=== PATIENT | female | born 1945 | race Two or more races ===

== ENCOUNTER → 2022-04-29 | Outpatient (CLI) | payer MEDICAID | END | disposition home or self-care (01) | LOC: Rad HDHVI 08:01 | PROVIDERS: ATTEND Internal Medicine Cardiovascular Disease | DX: I08.1 Rheumatic disorders of both mitral and tricuspid valves (principal); R07.89 Other chest pain | CPT/HCPCS: 93306 ==

== ENCOUNTER → 2022-05-19 | Outpatient (CLI) | payer MEDICAID | END | disposition home or self-care (01) | LOC: Rad HDHVI 10:50 | PROVIDERS: ATTEND Internal Medicine Cardiovascular Disease | DX: I70.203 Unspecified atherosclerosis of native arteries of extremities, bilateral legs (principal) | CPT/HCPCS: 93925 ==

== ENCOUNTER → 2023-08-24 | Outpatient (CLI) | payer MEDICAID ==
[~2023-08-24] MED LIST: CARB-112 PO; DONE1TAB88 PO; METF-371 PO; ZOLP10TA6 PO
== END | disposition home or self-care (01) ==
LOC: Rad HDHVI 08:03
PROVIDERS: ATTEND Internal Medicine Cardiovascular Disease
DX: R07.89 Other chest pain (principal)
CPT/HCPCS: 93880

== ENCOUNTER → 2023-08-26 | Outpatient (CLI) | payer MEDICAID ==
[~2023-08-26] VITALS: Ht 154.9 cm; Wt 49.9 kg
[~2023-08-26] MED LIST changes: +ADENOSINE 42 MG in GIVE UN-DILUTED 0 ML IV ONE; +ADENOSINE 90 MG/30 ML INJ IV ONE
== END | disposition home or self-care (01) ==
LOC: Rad HDHVI 08:13
PROVIDERS: ATTEND Internal Medicine Cardiovascular Disease
DX: I11.0 Hypertensive heart disease with heart failure (principal); I50.43 Acute on chronic combined systolic (congestive) and diastolic (congestive) heart failure; E11.21 Type 2 diabetes mellitus with diabetic nephropathy; E78.00 Pure hypercholesterolemia, unspecified; I73.9 Peripheral vascular disease, unspecified; I42.0 Dilated cardiomyopathy
CPT/HCPCS: 78452; 93005; 96374; 96375; A9500; J0153

== ENCOUNTER → 2023-08-27 | Outpatient (CLI) | payer MEDICAID ==
[~2023-08-27] MED LIST changes: -ADENOSINE 42 MG in GIVE UN-DILUTED 0 ML IV ONE; -ADENOSINE 90 MG/30 ML INJ IV ONE
== END | disposition home or self-care (01) ==
LOC: Rad HDHVI 13:01
PROVIDERS: ATTEND Internal Medicine Cardiovascular Disease
DX: I08.1 Rheumatic disorders of both mitral and tricuspid valves (principal); R07.89 Other chest pain
CPT/HCPCS: 93306

== ENCOUNTER 2024-05-28 18:01 | Emergency (ER) | payer MEDICAID ==
[~2024-05-28] VITALS: Ht 160 cm; Wt 5.0 kg
--- NOTE | 2024-05-28 18:18 | ED.PDOC ---
History of Present Illness HPI Comments 78 year old female came to ER due to weakness. Per EMS, patient picked up at home, and has history of dementia and diabetes. Was noted by family members that for the past 2 weeks she has been having episodes of nausea, vomiting and loss of appetite. Noted generalized weakness. Blood sugar on scene was 180. Chief Complaint: Weakness Time Seen by MD: 18:17 Reviewed Notes: Exchange Floor Manager Notes Allergies: Coded Allergies: No Known Drug Allergy (Verified Allergy, Unknown, 09/03/22) Home Meds Reported Medications Zolpidem Tartrate (Zolpidem Tartrate) 10 Mg Tab, 10 MG PO DAILY, TAB 09/03/22 Donepezil Hydrochloride (DONEPEZIL HCL) 10 Mg Tab, 10 MG PO HS for dementia, MG 09/03/22 Levodopa W/Carbidopa (Carbidopa/Levodopa) 1 Tab Tab, 0.5 TAB PO BID for dementia, TAB 09/03/22 Levodopa W/Carbidopa (Carbidopa/Levodopa) 1 Tab Tab, 0.5 TAB PO ac breakfast for dementia, TAB 09/03/22 Metformin Hydrochloride (Metformin Hcl) 850 Mg Tab, 850 MG PO BID for DIABETES for 30 Days, MG 09/03/22 Information Source: Patient, Emergency Med Personnel Mode of Arrival: EMS Severity: Moderate Timing: Days Duration: Since onset Prehospital treatment: Accucheck Review of Systems Review of Systems: REVIEW OF SYSTEMS: No fever, no chills, or fatigue HEENT: No sore throat, no earache, no congestion, no neck pain. Cardiac: No chest pain. No palpitations. Lungs: No shortness of breath, no cough. GI: + nausea, + vomiting, no diarrhea, no constipation, + abdominal pain : No dysuria, frequency, or urgency. No hematuria. Musculoskeletal: No joint pain , no joint swelling, no extremity edema. Skin: No rash, no itching. Neuro: No headache, + dizziness, + weakness Vital Signs Vital Signs Date Time Temp Pulse Resp B/P (MAP) Pulse Ox O2 Delivery O2 Flow Rate FiO2 05/28/24 23:22 97.3 64 14 142/77 (98) 99 97.3 05/28/24 19:59 Room Air* 0 21 Physical Exam Physical Exam General: Awake, alert and oriented. No acute distress. Skin: Skin in warm, dry , poor skin turgor. Appropriate color for ethnicity. HEENT: The head is normocephalic and atraumatic. Conjunctivae are clear without exudates or hemorrhage. Sclera is non-icteric. EOM are intact. No signs of nystagmus. Eyelids are normal in appearance without swelling or lesions. Oral mucosa is pink and moist Neck: The neck is supple with normal range of motion. No JVD. Cardiac: Heart rate and rhythm are normal. No murmurs, gallops, or rubs are auscultated. Respiratory: No signs of respiratory distress. Lung sounds are clear in all lobes bilaterally without rales, rhonchi, or wheezes. Abdominal: Abdomen is soft, generally-tender without distention. Bowel sounds are present and normoactive in all four quadrants. Extremities: Upper and lower extremities are atraumatic in appearance without deformity or edema. Neurological: The patient is awake, alert and oriented to person, Speech is clear. There is no facial asymmetry. Psychiatric: Appropriate mood and affect. Good judgement and insight. Past Medical History PAST MEDICAL HISTORY: Alzheimer, Dementia Surgical History: Pt Confused JOB ANALYST History: Pt Confused Family History Family History: Pt Confused Social History Smoker: Pt Confused Alcohol: Pt Confused Drugs: Pt Confused Lives In: Home Was a procedure done? Was a procedure done?: No EKG EKG : Pulse Rate (adult): 97 Cardiac Rhythm: NSR Comments No STEMI Differential Dx Considerations may include: anemia, electrolyte imbalance, dehydration, sepsis, dementia, UTI. gastroenteritis Urinary tract infection, dehydration, sepsis, thyroid disorder, anemia, acute coronary syndrome, electrolyte imbalance, congestive heart failure, X-Ray, Labs, Meds, VS Vital Signs Date Time Temp Pulse Resp B/P (MAP) Pulse Ox O2 Delivery O2 Flow Rate FiO2 05/28/24 23:22 97.3 64 14 142/77 (98) 99 97.3 05/28/24 20:14 97 05/28/24 20:05 98.0 66 18 153/63 (93) 97 98.0 05/28/24 19:59 Room Air* 0 21 05/28/24 19:35 97 05/28/24 18:31 68 05/28/24 18:27 96.5 77 20 149/92 (111) 100 96.5 Lab Test 05/28/24 19:55 05/28/24 18:38 Range/Units Influenza Type A Antigen Nn Negative Influenza Type B Antigen Negative Negative SARS-CoV-2 Antigen (Rapid) Negative NEGATIVE White Blood Count 4.9 4.4-10.8 10^3/uL Red Blood Count 4.44 4.0-5.20 10^6/uL Hemoglobin 12.6 12.2-16.2 g/dL Hematocrit 39.4 36.0-46.0 % Mean Corpuscular Volume 88.8 80.0-100.0 fL Mean Corpuscular Hemoglobin 28.3 28.0-32.0 pg Mean Corpuscular Hemoglobin Concent 31.9 L 32.0-36.0 g/dL Red Cell Distribution Width 14.4 H 11.8-14.3 % Platelet Count 197 140-450 10^3/uL Mean Platelet Volume 7.4 6.9-10.8 fL Neutrophils (%) (Auto) 77.8 37.0-80.0 % Lymphocytes (%) (Auto) 16.2 10.0-50.0 % Monocytes (%) (Auto) 5.6 0.0-12.0 % Eosinophils (%) (Auto) 0.2 0.0-7.0 % Basophils (%) (Auto) 0.2 0.0-2.0 % Neutrophils # (Auto) 3.8 1.6-8.6 10 ^3/uL Lymphocytes # (Auto) 0.8 0.4-5.4 10 ^3/uL Monocytes # (Auto) 0.3 0-1.3 10 ^3/uL Eosinophils # (Auto) 0 0-0.8 10 ^3/uL Basophils # (Auto) 0 0-0.2 10 ^3/uL Nucleated Red Blood Cells 0.1 % Sodium Level 141 136-145 mmol/L Potassium Level 3.6 3.5-5.1 mmol/L Chloride Level 106 98-107 mmol/L Carbon Dioxide Level 28 20-31 mmol/L Anion Gap 7 5-15 Blood Urea Nitrogen 28 H 9-23 mg/dL Creatinine 0.74 0.550-1.02 mg/dL Glomerular Filtration Rate Calc 82 >90 mL/min BUN/Creatinine Ratio 37.8 H 10.0-20.0 Serum Glucose 169 H 74-106 mg/dL Lactic Acid Level 0.9 0.4-2.0 mmol/L Calcium Level 9.4 8.7-10.4 mg/dL Magnesium Level 2.0 1.6-2.6 mg/dL Total Bilirubin 0.7 0.2-1.0 mg/dL Aspartate Amino Transferase (AST) < 8 L 13-40 U/L Alanine Aminotransferase (ALT) 21 7-40 U/L Alkaline Phosphatase 110 46-116 U/L Troponin I High Sensitivity 23 </=34 ng/L B-Type Natriuretic Peptide 215.44 0-100 pg/mL Total Protein 7.3 5.7-8.2 g/dL Albumin 4.5 3.2-4.8 g/dL Lipase 32 12-53 U/L Thyroid Stimulating Hormone (TSH) 1.65 0.55-4.78 uIU/mL Plasma/Serum Blood Alcohol < 3.0 <10 mg/dL Microbiology Date/Time Source Procedure Growth Status 05/28/24 18:38 Blood Blood Culture - Preliminary NO GROWTH AFTER 24 HOURS OF INCUBATION. Resulted 05/28/24 18:20 Blood Blood Culture - Preliminary NO GROWTH AFTER 24 HOURS OF INCUBATION. Resulted CHEST RADIOGRAPH Indication: AMS Technique: Single frontal view of the chest was obtained COMPARISON: Chest x-ray 09/03/2022 FINDINGS: Lines and Tubes: None Lungs: Clear Pleura: No effusion. No pneumothorax. Cardiomediastinal contours: Mild cardiomegaly IMPRESSION: No acute disease. Time of 1ST Reevaluation: 18:14 Reevaluation 1ST: Unchanged Patient Education/Counseling: Other (History of dementia) Family Education/Counseling: Other (Discussed with daughter pending test results and plan of care) Departure 1 Departure Time of Disposition: 00:00 Impression: Primary Impression: Generalized weakness Additional Impressions: Dementia Eloped from emergency department Disposition: 07 LEFT AWOL/ELOPED Condition: Stable Comments 78-year-old female who presents to the emergency department with generalized weakness, abdominal tenderness, nausea and vomiting. Patient was evaluated on arrival to the emergency department in the ambulance stretcher. Labs and i anh ordered. Discussed plan of care and pending test results with daughter. She agreed to stay and complete workup. Daughter later eloped with the patient in the emergency department. I was not informed of the patient's departure from the emergency department. Attempted to reach Ida Kauffman on phone number listed in chart however this message stating phone numbers not in service [phone] Critical Care Note Critical Care Time?: No Stability Stability form required: No Heart Score Heart Score: Heart Score Response (Comments) Value History N/A 0 EKG N/A 0 Age N/A 0 Risk Factors N/A 0 Troponin N/A 0 Total 0 I personally scribed for RAVEN NG MD ([email or web address]) on 05/28/24 at 18:18. Electronically submitted by Lizandro Leone ([email or web address]). I personally scribed for RAVEN NG MD ([email or web address]) on 05/28/24 at 18:22. Electronically submitted by Lizandro Leone ([email or web address]). I personally scribed for RAVEN NG MD ([email or web address]) on 05/28/24 at 18:23. Electronically submitted by Lizandro Leone ([email or web address]). I personally scribed for RAVEN NG MD ([email or web address]) on 05/28/24 at 20:11. Electronically submitted by Lizandro Leone ([email or web address]). I personally scribed for RAVEN NG MD ([email or web address]) on 05/28/24 at 20:14. Electronically submitted by Lizandro Leone ([email or web address]). I personally scribed for RAVEN NG MD ([email or web address]) on 05/28/24 at 23:13. Electronically submitted by Lizandro Leone ([email or web address]). RAVEN NG MD May 28, 2024 18:18
[2024-05-28] MEDS: SODIUM CHLORIDE 0.9% 1,000 ML IV ONE (18:30)
[2024-05-28 18:57] LABS: Basophils # (auto) 0 10 ^3/uL (0-0.2); Basophils % (auto) 0.2 % (0.0-2.0); Eosinophils # (auto) 0 10 ^3/uL (0-0.8); Eosinophils % (auto) 0.2 % (0.0-7.0); Hematocrit 39.4 % (36.0-46.0); Hemoglobin 12.6 g/dL (12.2-16.2); Lymphocytes # (auto) 0.8 10 ^3/uL (0.4-5.4); Lymphocytes % (auto) 16.2 % (10.0-50.0); Mean Corpuscular Hemoglobin 28.3 pg (28.0-32.0); Mean Corpuscular Hgb Conc. 31.9 g/dL (32.0-36.0); Mean Corpuscular Volume 88.8 fL (80.0-100.0); Monocytes # (auto) 0.3 10 ^3/uL (0-1.3); Monocytes % (auto) 5.6 % (0.0-12.0); Neutrophils # (auto) 3.8 10 ^3/uL (1.6-8.6); Neutrophils % (auto) 77.8 % (37.0-80.0); Nucleated Red Blood Cells % 0.1 %; Platelet Count (auto) 197 10^3/uL (140-450); Red Blood Cells 4.44 10^6/uL (4.0-5.20); Red Cell Distribution Width 14.4 % (11.8-14.3); White Blood Cell 4.9 10^3/uL (4.4-10.8)
[2024-05-28 19:11] LABS: Alanine Aminotransferase 21 U/L (7-40); Alkaline Phosphatase 110 U/L (46-116); Anion Gap 7 (5-15); BUN/Creatinine Ratio 37.8 (10.0-20.0); Calcium 9.4 mg/dL (8.7-10.4); Carbon Dioxide 28 mmol/L (20-31); Chloride 106 mmol/L (98-107); Potassium 3.6 mmol/L (3.5-5.1); Sodium 141 mmol/L (136-145); Total Protein 7.3 g/dL (5.7-8.2)
[2024-05-28 19:12] LABS: Albumin 4.5 g/dL (3.2-4.8); Bilirubin, Total 0.7 mg/dL (0.2-1.0)
[2024-05-28 19:14] LABS: Aspartate Aminotransferase < 8 U/L (13-40); Blood Alcohol < 3.0 mg/dL (<10); Blood Urea Nitrogen 28 mg/dL (9-23); Glucose 169 mg/dL (74-106)
--- NOTE | 2024-05-28 19:16 | DVH ---
CHEST RADIOGRAPH Indication: AMS Technique: Single frontal view of the chest was obtained COMPARISON: Chest x-ray 09/03/2022 FINDINGS: Lines and Tubes: None Lungs: Clear Pleura: No effusion. No pneumothorax. Cardiomediastinal contours: Mild cardiomegaly IMPRESSION: No acute disease.
[2024-05-28 19:43] LABS: Lipase 32 U/L (12-53)
[2024-05-28 20:30] LABS: COVID19 ANTIGEN SOFIA FIA NEGATIVE (NEGATIVE); Rapid Influenza A NN (Negative); Rapid Influenza B Negative (Negative)
[2024-05-28] MEDS: IOHEXOL 300 MG/ML 100ML BOTTLE IJ ONE (22:37)
[2024-05-28] MEDS: ONDANSETRON HCL 4 MG/2 ML VIAL IV ONE (22:41)
[2024-05-28 23:22] VITALS: BP 142/77; PULSE 64; RESP 14; TEMP 97.3; O2SAT 99
--- NOTE | 2024-05-28 23:55 | DVH ---
CLINICAL HISTORY: Abdominal pain, generalized weakness TECHNIQUE: CT of the abdomen and pelvis was performed with intravenous contrast. 100 mL Omnipaque 300 injected This exam was performed according to our departmental dose optimization program. Up-to-date CT equipment and radiation dose reduction techniques are utilized as appropriate. CTDIVol: 5.96 mGy DLP: 335.1 mGy-cm WID: COMPARISON: None FINDINGS: Lower Thorax: Linear bibasilar scarring or atelectasis. Mild cardiomegaly with small pericardial effu sheri. Partially imaged moderate 3-vessel calcified coronary artery disease. Mild mixed atheroscleroti c plaque in the descending thoracic aorta. Liver and Biliary system: Hepatomegaly measuring 19 cm craniocaudal. No discrete hepatic lesion. Ther e is mild hepatic steatosis. The gallbladder is normal caliber. There is no biliary ductal dilatatio n. Spleen: Unremarkable. Adrenal Glands and Kidneys: Unremarkable apart from a tiny right upper pole renal cyst. Pancreas and Retroperitoneum: Atrophic pancreas. No retroperitoneal lymphadenopathy. Aorta and Major Vessels: Aortoiliac vessels are patent and normal caliber containing mild mixed ather osclerotic plaque Bowel, Mesentery and Peritoneal space: Mild circumferential wall thickening of the cecum and proximal ascending colon. Small hiatal hernia. Normal caliber small and large bowel.. No free air or fluid co llection Pelvis: Unremarkable Abdominal wall and Osseous Structures: Multilevel lower thoracic and lumbar spondylosis. No destructi ve osseous lesion. IMPRESSION: 1. Mild wall thickening of the cecum and proximal ascending colon which could be infectious or inflam matory colitis. 2. Mild cardiomegaly and partially imaged moderate 3-vessel calcified coronary artery disease. 3. Mild hepatomegaly with mild hepatic steatosis. 4. Small hiatal hernia.
--- NOTE | 2024-05-30 14:33 | ECG ---
[facility] Test Date: 2024-05-28 Test Time: 19:35:25 Pat Name: PETER WEAVERDepartment: ER Room: Gender: F Apartment Leasing Manager: ER : 1945 Requested By: RAVEN NG Order Number: [id number] Reading MD: Jersey Tay Measurements Intervals [place] Rate: 97 P: 41 VA: 112 QRS: -56 QRSD: 139 T: 83 QT: 459 QTc: 583 Interpretive Statements Sinus rhythm Paired ventricular premature complexes Borderline short VA interval Left bundle branch block Baseline wander in lead(s) II,III,aVF Electronically Signed On 06-01-2024 20:53:16 PDT by Jersey Tay Please click the below link to view image of tracing.
--- NOTE | 2024-06-02 11:21 | ECG ---
[facility] Test Date: 2024-05-28 Test Time: 18:31:29 Pat Name: PETER WEAVERDepartment: ER Room: Gender: F Sheriff Detective: KRAIG : 1945 Requested By: RAVEN NG Order Number: [id number] Reading MD: Jersey Tay Measurements Intervals [place] Rate: 68 P: 75 NV: 123 QRS: -42 QRSD: 140 T: 34 QT: 440 QTc: 469 Interpretive Statements Sinus rhythm Left bundle branch block Baseline wander in lead(s) I,II,aVR Electronically Signed On 06-03-2024 13:37:07 PDT by Jersey Tay Please click the below link to view image of tracing.
== END 2024-05-28 23:48 | disposition left against medical advice (07) ==
LOC: EDBD 18:01 → EDUNIT# 18:01 → ER 18:01
DX: R53.1 Weakness (principal); F03.90 Unspecified dementia, unspecified severity, without behavioral disturbance, psychotic disturbance, mood disturbance, and anxiety; R06.02 Shortness of breath; Z20.822 Contact with and (suspected) exposure to COVID-19; Z79.84 Long term (current) use of oral hypoglycemic drugs
CPT/HCPCS: 36415; 71045; 74177; 80053; 80320; 82947; 83605; 83690; 83735; 83880; 84443; 84484; 85025; 87040; 87426; 87804; 93005; 96361; 96374; 99285; J2405; J7030; Q9967